=== PATIENT | male | born 1960 | race Native Hawaiian/Other Pacific Islander ===

== ENCOUNTER 2019-09-15 07:49 | Day surgery (SDC) | payer OTHER ==
[2019-09-15 09:02] LABS: PLATELET COUNT 185 K/uL (142-355)
[2019-09-15 09:10] LABS: POTASSIUM 4.4 mmol/L (3.6-5.2)
== END 2019-09-15 11:50 | disposition home or self-care (01) ==
LOC: OR 07:49
PROVIDERS: Internal Medicine
PROC: 0DJD8ZZ Inspection of Lower Intestinal Tract, Via Natural or Artificial Opening Endoscopic (ICD-10-PCS; principal; 2019-09-15)
DX: K64.8 Other hemorrhoids (principal); R63.5 Abnormal weight gain; Z86.010 Personal history of colon polyps; Z12.11 Encounter for screening for malignant neoplasm of colon
CPT/HCPCS: 80053; 85027; J2001; J2250; J2405; J2704; J2765; J3490

== ENCOUNTER 2020-01-04 08:33 | Outpatient (CLI) | payer OTHER | END 2020-01-04 19:28 | disposition home or self-care (01) | LOC: MRI 08:33 | DX: G89.29 Other chronic pain (principal); M54.10 Radiculopathy, site unspecified ==

== ENCOUNTER 2021-01-03 09:55 | Outpatient (CLI) | payer OTHER | END 2021-01-03 21:50 | disposition home or self-care (01) | LOC: RAD 09:55 | PROVIDERS: ATTEND Specialist | DX: M54.2 Cervicalgia (principal) ==

== ENCOUNTER 2021-01-28 08:44 | Outpatient (CLI) | payer OTHER | END 2021-01-28 21:34 | disposition home or self-care (01) | LOC: CT 08:44 | PROVIDERS: ATTEND Internal Medicine Gastroenterology | DX: R10.84 Generalized abdominal pain (principal) | CPT/HCPCS: 36415; 82565; 84520; Q9963 ==

== ENCOUNTER 2021-02-20 10:08 | Outpatient (CLI) | payer OTHER | END 2021-02-20 21:22 | disposition home or self-care (01) | LOC: RAD 10:08 | PROVIDERS: ATTEND Internal Medicine | DX: M79.644 Pain in right finger(s) (principal); S90.851D Superficial foreign body, right foot, subsequent encounter; S89.92XA Unspecified injury of left lower leg, initial encounter ==

== ENCOUNTER 2021-06-11 16:48 | Emergency (ER) | payer OTHER ==
[~2021-06-11] VITALS: Ht 188 cm; Wt 107.0 kg
[2021-06-11 19:27] VITALS: BP 141/87; TEMP 99.2
== END 2021-06-11 19:27 | disposition home or self-care (01) ==
LOC: ED 16:48
DX: K42.9 Umbilical hernia without obstruction or gangrene (principal); R10.84 Generalized abdominal pain
CPT/HCPCS: 81000; 99283; J1885

== ENCOUNTER 2021-11-13 11:23 | Outpatient (CLI) | payer OTHER | END 2021-11-13 18:56 | disposition home or self-care (01) | LOC: US 11:23 | PROVIDERS: ATTEND Internal Medicine | DX: Z87.891 Personal history of nicotine dependence (principal) ==

== ENCOUNTER 2022-12-17 08:42 | Outpatient (CLI) | payer OTHER | END 2022-12-17 18:55 | disposition home or self-care (01) | LOC: CT 08:42 | PROVIDERS: ATTEND Physician Assistant | DX: R19.09 Other intra-abdominal and pelvic swelling, mass and lump (principal) ==

== ENCOUNTER 2023-03-11 08:26 | Outpatient (CLI) | payer OTHER | END 2023-03-11 18:56 | disposition home or self-care (01) | LOC: MRI 08:26 | PROVIDERS: ATTEND Orthopaedic Surgery | DX: M54.59 Other low back pain (principal); M54.16 Radiculopathy, lumbar region; M51.36 Other intervertebral disc degeneration, lumbar region; M51.37 Other intervertebral disc degeneration, lumbosacral region; M51.35 Other intervertebral disc degeneration, thoracolumbar region ==